=== PATIENT | male | born 1995 | race Caucasian/White ===

== ENCOUNTER 2025-01-31 08:25 | Emergency (ER) | payer OTHER ==
[2025-01-31 09:00] VITALS: TEMP 98.5
[2025-01-31 12:04] VITALS: RESP 16
[2025-01-31 12:50] VITALS: BP 115/68; PULSE 86; O2SAT 99
== END 2025-01-31 12:51 | disposition left against medical advice (07) ==
LOC: ED 08:25
DX: R05.1 Acute cough (principal)